=== PATIENT | female | born 1990 | race African-American/Black ===

== ENCOUNTER 2022-01-02 23:54 | Emergency (ER) | payer SELFPAY ==
[2022-01-03] MEDS ORDERED: Ibuprofen 200 MG TAB ONE (00:44)
== END 2022-01-03 02:30 | disposition home or self-care (01) ==
LOC: CSHERS 23:54
DX: S62.622A Displaced fracture of middle phalanx of right middle finger, initial encounter for closed fracture (principal); V49.10XA Passenger injured in collision with unspecified motor vehicles in nontraffic accident, initial encounter; Y92.410 Unspecified street and highway as the place of occurrence of the external cause
CPT/HCPCS: G0390